=== PATIENT | female | born 1985 | race Two or more races ===

== ENCOUNTER 2017-12-12 23:26 | Emergency (ER) | payer SELFPAY ==
[~2017-12-12] VITALS: Ht 149.9 cm; Wt 56.0 kg
[2017-12-12 23:42] VITALS: BP 127/71
[2017-12-13 00:02] LABS: Basophils # (auto) 0 uL; Basophils % (auto) 0.4 % (0.0-2.0); Eosinophils # (auto) 0.2 uL; Eosinophils % (auto) 1.6 % (0.0-7.0); Hematocrit 39.4 % (36.0-46.0); Hemoglobin 12.7 g/dL (12.2-16.2); Lymphocytes # (auto) 2.1 uL; Lymphocytes % (auto) 15.1 % (10.0-50.0); Mean Corpuscular Hgb Conc. 32.2 g/dL (32.0-36.0); Mean Corpuscular Volume 83.8 fL (80.0-100.0); Monocytes # (auto) 0.7 uL; Neutrophils # (auto) 10.6 uL; Neutrophils % (auto) 77.9 % (37.0-80.0); Nucleated Red Blood Cells % 0.1 %; Platelet Count (auto) 147 10^3/uL (140-450); Red Cell Distribution Width 13.1 % (11.8-14.3); White Blood Cell 13.6 10^3/uL (4.4-10.8)
[2017-12-13 00:19] LABS: Albumin 3.8 g/dL (3.4-5.0); BUN/Creatinine Ratio 24.4; Calcium 9.6 mg/dL (8.5-10.1); Potassium 3.8 mmol/L (3.5-5.1)
[2017-12-13 00:22] LABS: Bilirubin, Total 0.4 mg/dL (0.2-1.0)
[2017-12-13 05:25] LABS: Urine Bacteria MOD /hpf (None Seen); Urine Blood 3+ /uL (Negative); Urine Specific Gravity 1.003 (1.001-1.035); Urine WBC 19 /hpf (0 - 5)
== END 2017-12-13 05:17 | disposition left against medical advice (07) ==
LOC: ER 23:33
DX: O20.9 Hemorrhage in early pregnancy, unspecified (principal); Z3A.01 Less than 8 weeks gestation of pregnancy; Z53.21 Procedure and treatment not carried out due to patient leaving prior to being seen by health care provider
CPT/HCPCS: 36415; 76801; 80053; 81001; 84702; 85025

== ENCOUNTER 2018-07-08 23:23 | Observation (INO) | payer SELFPAY | END 2018-07-08 23:44 | disposition left against medical advice (07) | DRG 833 | LOC: LDRP 23:23 | PROVIDERS: ADMIT Obstetrics & Gynecology; ATTEND Obstetrics & Gynecology | DX: O36.8190 Decreased fetal movements, unspecified trimester, not applicable or unspecified (principal) | CPT/HCPCS: G0378 ==